=== PATIENT | male | born 1950 ===

== ENCOUNTER 2018-05-29 08:22 | Day surgery (SDC) | payer MEDICARE ==
[2018-04-25 11:40] VITALS: BMI 20.4
[2018-05-29] MEDS ORDERED: Propofol 10 mg/ml Inj (20 ML) ONE (11:40)
[2018-05-29] MEDS ORDERED: cefTRIAXone (Rocephin) 1 gm Inj ONE (11:41)
[2018-05-29] MEDS ORDERED: Sodium Chloride 0.9% 1,000 ML IV SCH (12:15)
[2018-05-29 12:52] VITALS: PULSE 86; TEMP 98.2; O2SAT 99
[2018-05-29 13:13] VITALS: BP 138/78; RESP 20
== END 2018-05-29 13:20 | disposition home or self-care (01) ==
LOC: ENDO 08:22
PROVIDERS: ATTEND Internal Medicine Gastroenterology
DX: K31.7 Polyp of stomach and duodenum (principal); K44.9 Diaphragmatic hernia without obstruction or gangrene; K92.2 Gastrointestinal hemorrhage, unspecified; K74.60 Unspecified cirrhosis of liver; D64.9 Anemia, unspecified
CPT/HCPCS: 43239; 88305; 88342; J0696; J2001; J2704; J3010; J7030; J7040

== ENCOUNTER 2018-06-19 08:38 | Day surgery (SDC) | payer MEDICARE, OTHER ==
[2018-04-25 11:40] VITALS: BMI 20.4
[2018-06-19 09:10] VITALS: TEMP 98.7
[2018-06-19 09:22] LABS: BASO # 0.01 K/mm3 (0.0-2.0); BASO % 0.2 % (0.0-3.0); EOS # 0.3 (0.0-0.7); EOS % 7.1 % (1.5-5.0); GRAN # 1.31 (1.4-6.5); GRAN % 29.9 % (50.0-68.0); HEMOGLOBIN 10.6 g/dL (14.0-18.0); LYMPH # 2.2 (1.2-3.4); LYMPH % 50.9 % (22.0-35.0); MEAN CELL VOLUME 78.1 fl (80.0-105.0); MEAN CORPUSCULAR HEMOGLOBIN 24.5 pg (25.0-35.0); MEAN CORPUSCULAR HGB CONC 31.4 g/dl (31.0-37.0); MONO # 0.5 (0.1-0.6); MONO % 11.9 % (1.0-6.0); PLATELET COUNT 152 10^3/uL (120.0-450.0); RBC 4.33 10^6/uL (3.5-6.1); RED CELL DISTRIBUTION WIDTH 23.5 % (11.5-14.5); WHITE BLOOD COUNT 4.4 10^3/uL (4.5-11.0)
[2018-06-19 10:03] LABS: INR 1.15; PROTHROMBIN TIME 13.3 SECONDS (9.4-12.5)
[2018-06-19] MEDS ORDERED: Propofol 10 mg/ml Inj (20 ML) ONE ×3 (10:08→10:50)
[2018-06-19] MEDS ORDERED: Lidocaine PF 2% (5 ml) Inj (For Cardiac Arrhy) ONE (10:08)
[2018-06-19] MEDS ORDERED: cefTRIAXone (Rocephin) 1 gm Inj IVPB ONE (10:15)
[2018-06-19] MEDS ORDERED: cefTRIAXone (Rocephin) 1 gm Inj ONE (10:17)
[2018-06-19] MEDS ORDERED: Esmolol 100 mg/10ml Inj IV ONE (10:34)
[2018-06-19] MEDS ORDERED: Phenylephrine 10 mg/ml Inj ONE (10:47)
[2018-06-19 11:30] VITALS: RESP 16
[2018-06-19] MEDS ORDERED: Sodium Chloride 0.9% 1,000 ML IV SCH (11:30)
[2018-06-19 12:12] VITALS: BP 140/87; PULSE 84; O2SAT 98
== END 2018-06-19 12:51 | disposition home or self-care (01) ==
LOC: ENDO 08:38
PROVIDERS: ATTEND Internal Medicine Gastroenterology
DX: K31.7 Polyp of stomach and duodenum (principal); K44.9 Diaphragmatic hernia without obstruction or gangrene; K57.30 Diverticulosis of large intestine without perforation or abscess without bleeding; K64.4 Residual hemorrhoidal skin tags; K64.8 Other hemorrhoids; R59.1 Generalized enlarged lymph nodes; D50.9 Iron deficiency anemia, unspecified
CPT/HCPCS: 36415; 43236; 43251; 45378; 85025; 85610; 85730; 88305; 88342; J0696; J2370; J2704; J7030; J7040